=== PATIENT | male | born 1995 | race Caucasian/White ===

== ENCOUNTER → 2022-01-28 | Outpatient (CLI) | payer BC ==
[2022-01-28 15:07] LABS: BASO % 0.6 % (0.0-1.0); EOS # 0.1 10^3/uL (0.0-0.5); EOS % 0.7 % (0.0-3.0); HEMATOCRIT 46.6 % (42.0-52.0); HEMOGLOBIN 14.9 g/dl (13.5-17.5); LYMPH # 2.1 10^3/uL (1.5-5.0); LYMPH % 30.8 % (24.0-44.0); MEAN CORPUSCULAR HEMOGLOBIN 28.3 pg (27.0-33.0); MEAN CORPUSCULAR VOLUME 88.6 fl (80.0-96.0); MONO # 0.6 10^3/uL (0.0-0.8); MONO % 8.7 % (2.0-8.0); NEUTROPHILS # 3.9 10^3/uL (1.5-8.5); NEUTROPHILS % 58.9 % (36.0-66.0); PLATELET COUNT, AUTOMATED 286 10^3/uL (150-450); RED BLOOD COUNT 5.26 10^6/uL (4.30-6.10); WHITE BLOOD COUNT 6.7 10^3/uL (4.0-10.0)
[2022-01-28 15:26] LABS: ALBUMIN 4.4 G/DL (3.2-5.2); ALKALINE PHOSPHATASE 51 U/L (46-116); ALT/SGPT 20 U/L (7.0-40); AST/SGOT 17 U/L (<34); BILIRUBIN,TOTAL 0.6 MG/DL (0.3-1.2); BLOOD UREA NITROGEN 11 MG/DL (9-23); CALCIUM LEVEL 9.5 MG/DL (8.5-10.1); CARBON DIOXIDE LEVEL 33 MMOL/L (20-31); CHLORIDE LEVEL 105 MMOL/L (98-107); CREATININE FOR GFR 0.87 MG/DL (0.70-1.30); GLOMERULAR FILTRATION RATE > 60.0 (>60); GLUCOSE, FASTING 79 MG/DL (60-100); POTASSIUM SERUM 4.1 MMOL/L (3.5-5.1); SODIUM LEVEL 144 MMOL/L (136-145); TOTAL PROTEIN 7.6 G/DL (5.7-8.2)
== END ==
LOC: M LAB 14:35
PROVIDERS: ATTEND Registered Nurse
DX: F90.9 Attention-deficit hyperactivity disorder, unspecified type (principal)

== ENCOUNTER → 2022-01-28 | Outpatient (REF) | payer BC ==
[2022-01-28 13:11] LABS: SEMEN APPEARANCE OPAQUE (OPAQUE)
[2022-01-28 13:12] LABS: SEMEN VISCOSITY LIQUID (LIQUID); SEMEN VOLUME 1.9 ML (2.0-5.0); SEMEN WBC >1 M/ml (<=1 M/ml)
== END ==
LOC: M LAB REF 11:55
PROVIDERS: ATTEND Obstetrics & Gynecology
DX: N46.9 Male infertility, unspecified (principal)

== ENCOUNTER → 2022-02-03 | Outpatient (CLI) | payer BC ==
[2022-02-03 14:41] LABS: APPEARANCE, URINE MANUAL CLEAR (CLEAR); COLOR, URINE MANUAL YELLOW (YELLOW)
[2022-02-03 14:43] LABS: BILIRUBIN, URINE MANUAL NEGATIVE (NEGATIVE); BLOOD URINE MANUAL NEGATIVE (NEGATIVE); GLUCOSE, URINE (UA) MANUAL NEGATIVE (NEGATIVE); KETONE, URINE MANUAL NEGATIVE (NEGATIVE); LEUKOCYTE ESTERASE, URINE MAN NEGATIVE (NEGATIVE); NITRITE, URINE MANUAL NEGATIVE (NEGATIVE); PROTEIN, URINE MANUAL NEGATIVE (NEGATIVE); SPECIFIC GRAVITY,URINE MANUAL 1.015 (1.002-1.035); UROBILINOGEN, URINE MANUAL NORMAL (NORMAL)
[2022-02-03 17:04] LABS: GC DNA AMPLIFICATION NEGATIVE (NEGATIVE)
== END ==
LOC: M LAB 13:19
PROVIDERS: ATTEND Registered Nurse
DX: R86.8 Other abnormal findings in specimens from male genital organs (principal)

== ENCOUNTER → 2022-03-09 | Outpatient (CLI) | payer BC | LOC: M RAD 07:19 | PROVIDERS: ATTEND Urology | DX: N46.01 Organic azoospermia (principal); N46.9 Male infertility, unspecified; Z87.438 Personal history of other diseases of male genital organs ==

== ENCOUNTER → 2022-03-09 | Outpatient (CLI) | payer BC ==
[2022-03-09 09:39] LABS: FOLLICLE STIMULATING HORMONE 11.1 mIU/ML (1.4-18.1)
[2022-03-09 09:40] LABS: LUTEINIZING HORMONE 5.5 mIU/ML (1.5-9.3)
[2022-03-09 09:44] LABS: ESTRADIOL 33.8 PG/ML (<39.8)
== END ==
LOC: M LAB 08:10
PROVIDERS: ATTEND Nurse Practitioner Women's Health
DX: N46.01 Organic azoospermia (principal)

== ENCOUNTER → 2022-03-12 | Outpatient (REF) | payer BC ==
[2022-03-12 11:18] LABS: SEMEN APPEARANCE OPAQUE (OPAQUE); SEMEN VISCOSITY LIQUID (LIQUID); SEMEN VOLUME 1.6 ML (2.0-5.0); SEMEN WBC >1 M/ml (<=1 M/ml)
== END ==
LOC: M SMT 10:53
PROVIDERS: ATTEND Nurse Practitioner Women's Health
DX: N46.9 Male infertility, unspecified (principal); N46.01 Organic azoospermia

== ENCOUNTER → 2023-01-25 | Outpatient (CLI) | payer BC ==
[2023-01-25 13:57] LABS: SEMEN APPEARANCE OPAQUE (OPAQUE)
[2023-01-25 13:58] LABS: SEMEN VISCOSITY LIQUID (LIQUID); SEMEN WBC >1 M/ml (<=1 M/ml)
[2023-01-25 14:04] LABS: SEMEN VOLUME 0.8 ML (2.0-5.0)
== END ==
LOC: M LAB 11:32
PROVIDERS: ATTEND Nurse Practitioner Family
DX: N46.9 Male infertility, unspecified (principal)

== ENCOUNTER → 2023-04-22 | Outpatient (CLI) | payer BC ==
[2023-04-22 14:59] LABS: SEMEN APPEARANCE OPAQUE (OPAQUE); SEMEN VISCOSITY LIQUID (LIQUID); SEMEN VOLUME 1.5 ml (2.0-5.0); WBC CONCENTRATION >1 M/ml (<=1 M/ml)
[2023-04-22 15:00] LABS: SPERM CONCENTRATION 2.5 M/ml (>=15.0)
== END ==
LOC: M LAB 13:39
PROVIDERS: ATTEND Urology
DX: N46.9 Male infertility, unspecified (principal)

== ENCOUNTER → 2023-05-07 | Outpatient (CLI) | payer BC ==
[2023-05-07 14:23] LABS: PSA SCREENING 1.11 NG/ML (< 4.00)
== END ==
LOC: M LAB 13:30
PROVIDERS: ATTEND Urology
DX: N46.9 Male infertility, unspecified (principal)
CPT/HCPCS: 36415; 84403; 85014; G0103

== ENCOUNTER → 2023-07-22 | Outpatient (CLI) | payer BC ==
[2023-07-22 10:17] LABS: PROSTATIC SPECIFIC AG MONITOR 0.96 NG/ML (< 4.00)
[2023-07-22 12:11] LABS: SEMEN APPEARANCE OPAQUE (OPAQUE); SEMEN VISCOSITY VISCOUS (LIQUID); WBC CONCENTRATION >1 M/ml (<=1 M/ml)
[2023-07-22 12:12] LABS: SPERM CONCENTRATION 12.3 M/ml (>=15.0)
== END ==
LOC: M LAB 09:00
PROVIDERS: ATTEND Anesthesiology Pain Medicine
DX: N46.9 Male infertility, unspecified (principal)

== ENCOUNTER → 2023-11-04 | Outpatient (CLI) | payer BC ==
[2023-11-04 15:48] LABS: PROSTATIC SPECIFIC AG MONITOR 0.71 NG/ML (< 4.00)
== END ==
LOC: M LAB 14:43
PROVIDERS: ATTEND Urology
DX: N46.9 Male infertility, unspecified (principal)

== ENCOUNTER → 2023-11-11 | Outpatient (CLI) | payer BC ==
[2023-11-11 09:02] LABS: SEMEN APPEARANCE OPAQUE (OPAQUE); SEMEN VISCOSITY VISCOUS (LIQUID); SEMEN pH 8.5 (7.0-8.0)
[2023-11-11 09:03] LABS: SPERM CONCENTRATION 11.5 M/ml (>=15.0); WBC CONCENTRATION >1 M/ml (<=1 M/ml)
== END ==
LOC: M LAB 06:30
PROVIDERS: ATTEND Urology
DX: N46.9 Male infertility, unspecified (principal)

== ENCOUNTER → 2024-06-01 | Outpatient (CLI) | payer BC | LOC: M SLEEP HO 11:03 | PROVIDERS: ATTEND Physician Assistant | DX: R40.0 Somnolence (principal); R06.83 Snoring; G47.30 Sleep apnea, unspecified ==